=== PATIENT | male | born 1940 | race Caucasian/White ===

== ENCOUNTER 2017-01-29 09:10 | Day surgery (SDC) | payer OTHER, MEDICARE ==
--- NOTE | 2017-01-28 07:47 | HP ---
DATE OF SURGERY: 01/29/2017 ADMISSION DIAGNOSIS: Right inguinal hernia. ANTICIPATED PROCEDURE: Repair with mesh. HISTORY OF PRESENT ILLNESS: The patient has symptomatic right inguinal hernia presents for repair. PAST MEDICAL HISTORY: ALLERGIES: NONE. MEDICATIONS: None. PAST SURGICAL HISTORY: None. SOCIAL HISTORY: Negative. FAMILY HISTORY: Negative. REVIEW OF SYSTEMS: Negative. PHYSICAL EXAMINATION: VITAL SIGNS: Normal. CHEST: Clear. COR: Regular. ABDOMEN: Right inguinal hernia. IMPRESSION: Right inguinal hernia. PLAN: Repair with mesh.
[~2017-01-29 09:10] MED LIST: CEFAZOLIN 2 GM-D5W BAG** 50 ML IV ONE; DIPRIVAN 200 MG/20 ML IV ONE; Decadron 4 MG INJ IV ONE; EPINEPHRINE 1:1000 1 ML AMP IJ ONE; KEFZOL 1 GM ONE; LIDOCAINE HCL 2% 100 MG/5 ML IJ ONE; Lactated Ringers 1,000 ML IV ONE; Naropin 0.5% 30 ML VIAL IJ ONE; Pepcid 20 MG VIAL IV ONE; Quelicin Fliptop 200 MG/10 ML IJ ONE; Sensorcaine 0.25% 10 ML ONE; Zofran 4 MG/2 ML VIAL IV ONE
[2017-01-29] MEDS ORDERED: CEFAZOLIN 2 GM-D5W BAG** 50 ML IV ONE (09:18)
[2017-01-29] MEDS ORDERED: Pepcid 20 MG VIAL IV ONE (09:18)
[2017-01-29] MEDS ORDERED: Lactated Ringers 1,000 ML IV ONE (09:18)
[2017-01-29] MEDS ORDERED: Lactated Ringers 1,000 ML IV SCH (09:30)
[2017-01-29 14:24] VITALS: O2SAT 96
[2017-01-29 15:57] VITALS: BP 159/56; PULSE 59
--- NOTE | 2017-01-31 14:11 | OP ---
SURGERY DATE/TIME: 01/29/2017 1210 PREOPERATIVE DIAGNOSIS: Right inguinal hernia. POSTOPERATIVE DIAGNOSIS: Right inguinal hernia. PROCEDURE: Right inguinal herniorrhaphy with mesh. SURGEON: Juvencio Wilson M.D. ANESTHESIA: General. COMPLICATIONS: None. CONDITION: Stable. INDICATION: The patient has a moderate sized symptomatic right. DESCRIPTION OF PROCEDURE: Taken to surgery. General anesthetic. Routine prep and drape. Curvilinear incision. 0.25% Marcaine infiltrated. External oblique opened, cord opened along the direction of its fibers. Indirect sac, 2 inches was taken, highly ligated two sutures #0 Prolene. There was some direct weakness. Floor was reinforced with 1x4 mesh secured in Jewel's ligament with suture #0 Prolene. Transitioning up to the Poupart's ligament and out at that level inferiorly. The cephalad leaf was secured to the conjoin tendon throughout. Internal ring was made one clamp tight. Hemostasis satisfactory. Cord, ilioinguinal nerve laid back in natural position. External oblique closed with 0 Vicryl. Cipriano fascia closed with 2-0 Vicryl. Skin closed with 4-0 Vicryl. Steri-Strips applied. Sterile dressing applied. The patient tolerated the procedure satisfactorily.
== END 2017-01-29 15:30 | disposition home or self-care (01) ==
LOC: SDC 09:10
PROVIDERS: ATTEND Surgery
PROC: 0YU50JZ Supplement Right Inguinal Region with Synthetic Substitute, Open Approach (ICD-10-PCS; principal; 2017-01-29)
DX: K40.90 Unilateral inguinal hernia, without obstruction or gangrene, not specified as recurrent (principal)
CPT/HCPCS: 00830; 36415; 64425; 88302; 99100; C1781; J0171; J0330; J0690; J1100; J2405; J2704; J2795

== ENCOUNTER 2025-08-14 03:51 | Inpatient (IN) | payer MEDICARE, OTHER ==
[2025-08-14] MEDS ORDERED: TYLENOL 325 MG ONE (04:23)
[2025-08-14] MEDS: TYLENOL 325 MG PO STA (04:23)
[2025-08-14 04:33] LABS: Hematocrit 44.7 % (40.1-51.0); Hemoglobin 15.3 g/dL (13.7-17.5); Mean Corpuscular Hemoglobin 30.8 pg (25.7-32.2); Mean Corpuscular Hgb Concent. 34.2 g/dL (32.3-36.5); Platelet Count 252 x10^3/uL (163-337); Red Blood Count 4.96 x10^6/uL (4.63-6.08); White Blood Count 13.6 x10^3/uL (4.23-9.07)
[2025-08-14 04:55] LABS: Calcium 8.9 mg/dL (8.4-10.2); Carbon Dioxide 21.0 mmol/L (22-30); Creatinine 1 0.84 mg/dL (0.66-1.25); EST GLOMERULAR FILTRATION RATE 87.1 ML/MIN; Glucose 226.0 mg/dL (74-106); Potassium 3.9 mmol/L (3.5-5.1); SGOT/AST 35.0 U/L (17-59); SGPT/ALT 25.0 U/L (0-50); Total Protein 8.1 g/dL (6.3-8.2)
[2025-08-14 05:03] LABS: Glucose, Urine >=1000 mg/dL (Negative); Protein,Urine Dip 30 (Negative); RBC 0-2 /HPF (0-5); WBC 21-50 /HPF (0-5)
[2025-08-14 05:09] LABS: INFLUENZA A NEGATIVE (NEGATIVE); INFLUENZA B NEGATIVE (NEGATIVE); RESPIRATORY SYNCTIAL VIRUS NEGATIVE (NEGATIVE); SARS-CoV-2 Xpert Express NEGATIVE (NEGATIVE)
[2025-08-14] MEDS ORDERED: ROCEPHIN 1 GM / 100 ML NaCl 1 GM/100 ML IVPB IV ONE (06:07)
[2025-08-14] MEDS: ROCEPHIN 1 GM / 100 ML NaCl 1 GM/100 ML IVPB IV STA (06:09)
--- NOTE | 2025-08-14 06:20 | XRAY ---
CLINICAL HISTORY: fever, tachycardia, weakness COMPARISON: None. TECHNIQUE: Multiple axial images were obtained from the skull base to the vertex without contrast. The CT scan was performed according to ALARA (as low as reasonably achievable) principles. FINDINGS: There is cerebral atrophy. No evidence of a space-occupying lesion, hemorrhage, edema, mass effect, midline shift, extra-axial collection, or hydrocephalus is noted. The basal cisterns are symmetric and normal in size and configuration. There are scattered periventricular hypodensities, as can be seen with chronic microvascular ischemic changes. The howard-white matter differentiation is preserved. The visualized paranasal sinuses and mastoid air cells are well aerated. The orbital contents are within normal limits. The bony structures are intact. IMPRESSION: 1. No evidence of acute intracranial abnormality is demonstrated. 2. Chronic microvascular ischemic changes. 3. Cerebral atrophy. Electronically Signed by: Bryn Downs MD. (08/14/2025 06:19:19 EDT)
--- NOTE | 2025-08-14 06:37 | XRAY ---
CLINICAL HISTORY: abd discomfort, fever COMPARISON: None. TECHNIQUE: Contiguous axial images were obtained from the level of the diaphragm to the pubic symphysis with intravenous contrast. Coronal and sagittal reconstructions were likewise performed and indicated to increase the sensitivity for detecting clinically relevant pathology. If IV contrast material had not been administered, the likelihood of detecting abnormalities relevant to the patient's condition would have been substantially decreased. The CT scan was performed according to ALARA (as low as reasonably achievable). FINDINGS: The visualized lung bases are clear. Sliding hiatal hernia is noted. The liver is normal in size and demonstrates reduced attenuation. No focal liver lesions are seen. There is no intra- or extrahepatic biliary ductal dilatation. The hepatic vasculature is patent. The gallbladder is distended and shows a soft calculus measuring 24 mm with a thickened, edematous gallbladder wall (gallbladder wall thickness measures 5-6 mm) and mild pericholecystic fluid collection, findings suggestive of cholecystitis. The spleen and adrenal glands are unremarkable. Diffuse fatty infiltration of the pancreas is present. A cyst measuring 13 x 13 mm is noted in the tail of the pancreas, which appears benign. The kidneys are normal in size and attenuation. There is no hydronephrosis or perinephric fat stranding. No renal calculi or renal masses are identified. A 6 cm cyst is noted in the left kidney. A tiny, non-obstructing left renal calculus measuring about 3 mm is seen. The ureters are normal in caliber, and no ureteral calculi are seen. The bladder is normal in contour. The pelvic viscera are unremarkable. No focal or diffuse bowel wall thickening or evidence of bowel obstruction is identified. No imaging evidence of appendicitis is seen. The abdominal and pelvic vasculature is patent. No adenopathy or fluid collections are seen. No aggressive-appearing osseous lesions are identified. Multiple small uncomplicated sigmoid colonic diverticulosis. Fat-containing left-sided inguinal hernia. IMPRESSION: Acute calculus cholecystitis. Diffuse fatty infiltration of the pancreas. 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 Multiple small uncomplicated sigmoid colonic diverticulosis. Small non-obstructing left renal calculus. Electronically Signed by: Bryn Downs MD. (08/14/2025 06:35:34 EDT)
[2025-08-14] MEDS ORDERED: PIPERACILLIN/TAZOBACTAM IV ONE (06:52)
--- NOTE | 2025-08-14 06:57 | ERPHSYRPT ---
- History of Present Illness Source: patient, family Patient Subjective Stated Complaint: c/o fever Triage Nursing Assessment: patient brought to ED by with c/o fever of 100/5 upon arrival orally. patient states that he woke up with sweats and chills at home. patient denies N/V/D, denies pain at this time but had some abdominal pain yesterday. 92% on RA, tachycardic, brought in by wheelchair, states he feels dehydrated, patient doesn't appear to be in any distress at this time. Hx Tetanus, Diphtheria Vaccination/Date Given: No Hx Influenza Vaccination/Date Given: No Hx Pneumococcal Vaccination/Date Given: Yes <CHUCK GALEANA - Last Filed: 08/14/25 06:51> <AALIYAH BUSH - Last Filed: 08/14/25 08:01> - History of Present Illness Physician History: HISTORY OF PRESENT ILLNESS 84-year-old male with a history of urethral stricture and hypertension presents after waking this morning with fever to 100.5 F, sweats, and chills, reporting abdominal pain that began yesterday and persists today. He feels dehydrated and weak but denies nausea, vomiting, diarrhea, chest pain, shortness of breath, and any current urinary symptoms. He speculates that a kidney stone may have precipitated his symptoms. Pertinent negatives include absence of urinary complaints, chest pain, shortness of breath, nausea, vomiting, and diarrhea. HEALTHCARE PROVIDERS - [facility] (pending callback for anticipated transfer for surgical consultation, GI consultation) PAST MEDICAL HISTORY - History of urethral stricture - History of hypertension (CHUCK GALEANA) Allergies/Adverse Reactions: No Known Drug Allergies Allergy (Verified 08/14/25 04:01) Home Medications: lisinopriL [Lisinopril] 40 mg PO DAILY 01/20/17 [History] Amlodipine Besylate [Norvasc] 2.5 mg PO DAILY 08/14/25 [History] Metformin HCl 500 mg [Glucophage 500 MG] 500 mg PO DAILY 08/14/25 [History] hydroCHLOROthiazide [Hydrochlorothiazide] 12.5 mg PO DAILY 08/14/25 [History] Travel Risk - International Travel Have you traveled outside of the country in past 3 weeks: No - Emerging Infectious Disease Are you exhibiting symptoms associated with any current EIDs: Yes Symptoms: Fever <CHUCK GALEANA - Last Filed: 08/14/25 06:51> - Past Medical History Pertinent Past Medical History: Yes Neurological History: No Pertinent History ENT History: No Pertinent History Cardiac History: Hypertension Respiratory History: No Pertinent History Endocrine Medical History: No Pertinent History Musculoskeletal History: No Pertinent History GI Medical History: No Pertinent History History: Other Psycho-Social History: No Pertinent History Male Reproductive Disorders: No Pertinent History Other Medical History: urethral stricture, dialates every thursday with 18 guage catheter. - Past Surgical History Past Surgical History: Yes Neuro Surgical History: No Pertinent History Cardiac: No Pertinent History Respiratory: No Pertinent History Genitourinary: Other Musculoskeletal: No Pertinent History Male Surgical History: No Pertinent History Other Surgical History: kidney stone - Social History Smoking Status: Never smoker Exposure to second hand smoke: No Drug Use: none - Social Determinants of Health Will the patient participate in the screening: Yes Do you worry about a steady place to live?: No Do you have any problems with any of the following?: No known problems In the past 12 months,have you had to go without utilities?: No Transportation Issues: No Has anyone in your support network made you feel unsafe?: No Have you or anyone in your house had to go w/o enough food: No <CHUCK GALEANA - Last Filed: 08/14/25 06:51> - Physical Exam SpO2: 93 <CHUCK GALEANA - Last Filed: 08/14/25 06:51> - Nursing Vital Signs Nursing Vital Signs: Initial Vital Signs Temperature 100.5 F 08/14/25 03:56 Pain Scale Pain Intensity 4 - Physical Exam Comments: 08/14/25 07:00 PHYSICAL EXAM Vitals: Reviewed in chart. General: Alert and oriented; no acute distress. HEENT: Normocephalic. Respiratory: Respirations are non-labored; symmetrical chest wall expansion. Cardiovascular: 2+ radial pulse; tachycardic rate; no peripheral edema. GI: Mild abdominal discomfort; no rebound or guarding; no CVA tenderness. Integumentary: Warm. Musculoskeletal: Moving all extremities. Neurologic: Alert; normal speech. GCS 15. MOving all extremities. No focal deficits. Psychiatric: Appropriate. (CHUCK GALEANA) Ordered Tests: Active Orders 24 hr Category Date Time Status Vinyl Cutter STAT Care 08/14/25 04:15 Active EKG-ER Only STAT Care 08/14/25 04:13 Active IV Insertion STAT Care 08/14/25 04:13 Active Pulse Oximetry (ED) STAT Care 08/14/25 04:13 Active Re-Check Vital Signs STAT Care 08/14/25 04:13 Active ABDOMEN AND PELVIS W CONTRAST [CT] Stat Exams 08/14/25 04:14 Completed CHEST 1 VIEW (PORTABLE) Stat Exams 08/14/25 04:14 Taken HEAD WITHOUT CONTRAST [CT] Stat Exams 08/14/25 04:14 Completed BLOOD CULTURE Stat Lab 08/14/25 04:30 Received CBC W DIFF Stat Lab 08/14/25 04:30 Completed CMP Stat Lab 08/14/25 04:30 Completed CULTURE,URINE Stat Lab 08/14/25 04:48 Received Lactic Acid Stat Lab 08/14/25 04:44 Completed Lactic Acid Stat Lab 08/14/25 06:54 Completed Manual Differential NC Stat Lab 08/14/25 04:30 Completed TROPONIN Stat Lab 08/14/25 04:30 Completed UA W/RFX UR CULTURE Stat Lab 08/14/25 04:48 Completed Medication Summary Discontinued Medications Generic Name Dose Route Start Last Admin Trade Name Freq PRN Reason Stop Dose Admin Acetaminophen 975 mg 08/14/25 04:13 08/14/25 04:23 Acetaminophen 325 Mg Tablet PO 08/14/25 04:14 975 mg STAT STA Administration Acetaminophen Confirm 08/14/25 04:23 Acetaminophen 325 Mg Tablet Administered 08/14/25 04:24 Dose 975 mg .ROUTE .STK-MED ONE Sodium Chloride 1,000 mls @ 999 mls/hr 08/14/25 04:13 08/14/25 05:23 Sodium Chloride 0.9% 1000 Ml IV 08/14/25 05:13 Infused .Q1H1M STA Infusion Sodium Chloride Confirm 08/14/25 04:23 Sodium Chloride 0.9% 1000 Ml Administered 08/14/25 04:24 Dose 1,000 mls @ ud .ROUTE .STK-MED ONE Ceftriaxone Sodium 1 gm in 100 mls @ 200 mls/hr 08/14/25 06:05 08/14/25 06:39 Rocephin 1 Gm / 100 Ml Nacl IV 08/14/25 06:34 Infused STAT STA Infusion Ceftriaxone Sodium Confirm 08/14/25 06:07 Rocephin 1 Gm / 100 Ml Nacl Administered 08/14/25 06:08 Dose 1 gm in 100 mls @ ud IV .STK-MED ONE Piperacillin Sod/Tazobactam 100 mls @ 200 mls/hr 08/14/25 06:50 08/14/25 07:33 Sod 3.375 gm/ Sodium Chloride IV 08/14/25 07:19 Infused STAT STA Infusion Sodium Chloride Confirm 08/14/25 06:52 Sodium Chloride 0.9% Administered 08/14/25 06:53 Dose 100 mls @ ud .ROUTE .STK-MED ONE Piperacillin Sod/Tazobactam Sod Confirm 08/14/25 06:52 Piperacillin/Tazobactam Sodium 3.375 Gm Vial Administered 08/14/25 06:53 Dose 3.375 gm IV .STK-MED ONE Lab/Rad Data: Laboratory Result Diagrams 08/14/25 04:30 08/14/25 04:30 Laboratory Results 08/14/25 08/14/25 08/14/25 Range/Units 06:54 04:48 04:44 WBC (4.23-9.07) x10^3/uL RBC (4.63-6.08) x10^6/uL Hgb (13.7-17.5) g/dL Hct (40.1-51.0) % MCV (79.0-92.2) fL MCH (25.7-32.2) pg MCHC (32.3-36.5) g/dL RDW (11.6-14.4) % Plt Count (163-337) x10^3/uL MPV (9.4-12.4) fL Segmented Neutrophils (34.0-67.9) % Band Neutrophils (0.0-2.0) % Lymphocytes (Manual) (21.8-53.1) % Platelet Estimate (NORMAL) RBC Morphology Sodium (135-145) mmol/L Potassium (3.5-5.1) mmol/L Chloride (98-107) mmol/L Carbon Dioxide (22-30) mmol/L Anion Gap (5-15) MEQ/L BUN (9-20) mg/dL Creatinine (0.66-1.25) mg/dL Estimated GFR ML/MIN Glucose (74-106) mg/dL Lactic Acid 1.2 3.0 H (0.4-2.0) Calcium (8.4-10.2) mg/dL Total Bilirubin (0.2-1.3) mg/dL AST (17-59) U/L ALT (0-50) U/L Alkaline Phosphatase (38-126) U/L Troponin I (0.000-0.033) ng/mL Serum Total Protein (6.3-8.2) g/dL Albumin (3.5-5.0) g/dL Urine Color Yellow (Yellow) Urine Appearance Clear (Clear) Urine pH 5.5 (4.6-8.0) Ur Specific [place] 1.015 (1.005-1.030) Urine Protein 30 (Negative) Urine Glucose (UA) >=1000 A (Negative) mg/dL Urine Ketones Trace A (Negative) Urine Blood Negative (Negative) Urine Nitrite Negative (Negative) Urine Bilirubin Negative (Negative) Urine Urobilinogen 1.0 A (0.2) mg/dL Ur Leukocyte Esterase Moderate A (Negative) U Hyaline Cast (Auto) 6-10 A (0-2) /LPF Urine Microscopic RBC 0-2 (0-5) /HPF Urine Microscopic WBC 21-50 A (0-5) /HPF Ur Epithelial Cells Rare (None Seen) /HPF Urine Bacteria None Seen (None Seen) /HPF Urine Culture Reflexed YES (NO) Influenza Type A Ag (NEGATIVE) Influenza Type B Ag (NEGATIVE) RSV (PCR) (NEGATIVE) SARS-CoV-2 (PCR) (NEGATIVE) 08/14/25 08/14/25 08/14/25 Range/Units 04:30 04:30 04:30 WBC (4.23-9.07) x10^3/uL RBC (4.63-6.08) x10^6/uL Hgb (13.7-17.5) g/dL Hct (40.1-51.0) % MCV (79.0-92.2) fL MCH (25.7-32.2) pg MCHC (32.3-36.5) g/dL RDW (11.6-14.4) % Plt Count (163-337) x10^3/uL MPV (9.4-12.4) fL Segmented Neutrophils (34.0-67.9) % Band Neutrophils (0.0-2.0) % Lymphocytes (Manual) (21.8-53.1) % Platelet Estimate (NORMAL) RBC Morphology Sodium 132 L (135-145) mmol/L Potassium 3.9 (3.5-5.1) mmol/L Chloride 100 (98-107) mmol/L Carbon Dioxide 21 L (22-30) mmol/L Anion Gap 14.8 (5-15) MEQ/L BUN 11 (9-20) mg/dL Creatinine 0.84 (0.66-1.25) mg/dL Estimated GFR 87.1 ML/MIN Glucose 226 H (74-106) mg/dL Lactic Acid (0.4-2.0) Calcium 8.9 (8.4-10.2) mg/dL Total Bilirubin 1.50 H (0.2-1.3) mg/dL AST 35 (17-59) U/L ALT 25 (0-50) U/L Alkaline Phosphatase 110 (38-126) U/L Troponin I 0.033 (0.000-0.033) ng/mL Serum Total Protein 8.1 (6.3-8.2) g/dL Albumin 4.3 (3.5-5.0) g/dL Urine Color (Yellow) Urine Appearance (Clear) Urine pH (4.6-8.0) Ur Specific [place] (1.005-1.030) Urine Protein (Negative) Urine Glucose (UA) (Negative) mg/dL Urine Ketones (Negative) Urine Blood (Negative) Urine Nitrite (Negative) Urine Bilirubin (Negative) Urine Urobilinogen (0.2) mg/dL Ur Leukocyte Esterase (Negative) U Hyaline Cast (Auto) (0-2) /LPF Urine Microscopic RBC (0-5) /HPF Urine Microscopic WBC (0-5) /HPF Ur Epithelial Cells (None Seen) /HPF Urine Bacteria (None Seen) /HPF Urine Culture Reflexed (NO) Influenza Type A Ag NEGATIVE (NEGATIVE) Influenza Type B Ag NEGATIVE (NEGATIVE) RSV (PCR) NEGATIVE (NEGATIVE) SARS-CoV-2 (PCR) NEGATIVE (NEGATIVE) 08/14/25 Range/Units 04:30 WBC 13.6 H (4.23-9.07) x10^3/uL RBC 4.96 (4.63-6.08) x10^6/uL Hgb 15.3 (13.7-17.5) g/dL Hct 44.7 (40.1-51.0) % MCV 90.1 (79.0-92.2) fL MCH 30.8 (25.7-32.2) pg MCHC 34.2 (32.3-36.5) g/dL RDW 12.7 (11.6-14.4) % Plt Count 252 (163-337) x10^3/uL MPV 10.6 (9.4-12.4) fL Segmented Neutrophils 92 H (34.0-67.9) % Band Neutrophils 3 H (0.0-2.0) % Lymphocytes (Manual) 5 L (21.8-53.1) % Platelet Estimate NORMAL (NORMAL) RBC Morphology NORMAL Sodium (135-145) mmol/L Potassium (3.5-5.1) mmol/L Chloride (98-107) mmol/L Carbon Dioxide (22-30) mmol/L Anion Gap (5-15) MEQ/L BUN (9-20) mg/dL Creatinine (0.66-1.25) mg/dL Estimated GFR ML/MIN Glucose (74-106) mg/dL Lactic Acid (0.4-2.0) Calcium (8.4-10.2) mg/dL Total Bilirubin (0.2-1.3) mg/dL AST (17-59) U/L ALT (0-50) U/L Alkaline Phosphatase (38-126) U/L Troponin I (0.000-0.033) ng/mL Serum Total Protein (6.3-8.2) g/dL Albumin (3.5-5.0) g/dL Urine Color (Yellow) Urine Appearance (Clear) Urine pH (4.6-8.0) Ur Specific [place] (1.005-1.030) Urine Protein (Negative) Urine Glucose (UA) (Negative) mg/dL Urine Ketones (Negative) Urine Blood (Negative) Urine Nitrite (Negative) Urine Bilirubin (Negative) Urine Urobilinogen (0.2) mg/dL Ur Leukocyte Esterase (Negative) U Hyaline Cast (Auto) (0-2) /LPF Urine Microscopic RBC (0-5) /HPF Urine Microscopic WBC (0-5) /HPF Ur Epithelial Cells (None Seen) /HPF Urine Bacteria (None Seen) /HPF Urine Culture Reflexed (NO) Influenza Type A Ag (NEGATIVE) Influenza Type B Ag (NEGATIVE) RSV (PCR) (NEGATIVE) SARS-CoV-2 (PCR) (NEGATIVE) <CHUCK GALEANA - Last Filed: 08/14/25 06:51> - Progress Progress: improved, re-examined Discussed with DrLatrice: Kee Shah Counseled pt/family regarding: lab results, diagnosis, need for follow-up, rad results <AALIYAH BUSH - Last Filed: 08/14/25 08:01> - Progress Progress Note: 08/14/25 07:00 SUMMARY 84-year-old male presented with fever and abdominal pain. Exam showed mild abdominal discomfort and tachycardia. Labs revealed leukocytosis, elevated lactic acid, borderline troponin, borderline hyponatremia, elevated total bilirubin, and urine with moderate leukocyte esterase. EKG demonstrated sinus tachycardia without STEMI. CT abdomen/pelvis showed acute calculous cholecystitis, diffuse fatty infiltration of the pancreas, and a hypodense pancreatic tail lesion. Patient was informed of findings. Case signed out to Dr. Bush pending transfer to [facility] for surgical and GI consultation. Anticipated disposition is transfer for further management. EKG A 12-lead EKG was performed at 0418, and I independently interpret it as demonstrating sinus tachycardia, no significant ST segment elevation or depression. No prolongation of the intervals. Additional findings: mild demand induced changes, overall similar appearance to previous EKG. IMAGING I reviewed the report of the CT abdomen pelvis as demonstrating acute calculous cholecystitis, diffuse fatty infiltration of the pancreas, and a hypodense lesion noted in the tail of the pancreas. Incidental findings were also noted. I reviewed the report of the CT head as demonstrating no acute abnormality. LABS The following laboratory tests were performed and independently reviewed with results being unremarkable: COVID, influenza, and RSV swabs. Notable laboratory findings included lactic acid elevated at 3, borderline troponin level, urine notable for moderate leukocyte esterase, leukocytosis, borderline hyponatremia, and total bilirubin elevated at 1.5. MEDICATION/FLUID ADMINISTRATION - Patient was administered IV ceftriaxone. - Patient was administered oral acetaminophen. - Patient was administered IV piperacillin-tazobactam. - Patient was given 1L IV fluids. Additional fluids limited 2/2 age. PATIENT DISCUSSION I discussed available results with the patient, including the incidental findings and findings on CT imaging. MEDICAL DECISION MAKING This 84-year-old male presented with fever, abdominal pain, and a history of urethral stricture and hypertension. On examination, he was tachycardic with mild abdominal discomfort but without rebound, guarding, or CVA tenderness. Laboratory evaluation revealed elevated lactic acid, leukocytosis, borderline troponin, borderline hyponatremia, elevated total bilirubin, and urine with moderate leukocyte esterase. Imaging demonstrated acute calculous cholecystitis, diffuse fatty infiltration of the pancreas, and a hypodense lesion in the pancreatic tail. EKG showed sinus tachycardia without STEMI or interval changes. Given the diagnosis of acute calculous cholecystitis with systemic inflammatory response and abnormal laboratory findings, broad-spectrum antibiotics (IV ceftriaxone and IV Zosyn) and supportive care with IV fluids and oral Tylenol were initiated. The patient was informed of both the acute and incidental findings on CT imaging. Dynamic reassessment included monitoring for clinical improvement and review of repeat EKG, which remained stable. Due to the need for surgical and GI consultation, the patient was signed out to Dr. Bush pending transfer to [facility] and awaiting callback. The anticipated disposition is transfer for further management, with escalation of care if clinical deterioration or worsening laboratory parameters are observed. DISPOSITION Pending at time of sign out Disposition decision pending transfer acceptance and specialist consultation. Condition: Stable (CHUCK GALEANA) 08/14/25 07:[address] Jasso, general surgeon on-call. We will not perform an ultrasound. He wants anesthesia to see the patient. Anesthesia did see the patient here in the emergency department and his cleared him for cholecystectomy. The MRCP could not be scheduled till 1 PM today. Therefore, the MRCP will be scheduled for tomorrow or the next day postoperatively. I have discussed this with Dr. Jasso. I have placed a call to the telehospitalist for admission. 08/14/25 07:57 I spoke with telehospitalist, Dr. Nicholson, regarding admitting this patient into the hospital. I reviewed the patient history, presenting complaint, workup results. In addition I told her that the anesthesia has seen the patient and has cleared him for surgery. I also told her that I had spoken to general surgeon Dr. Jasso. It is my understanding the patient will be having surgery sometime today. She accepts the patient for admission (AALIYAH BUSH) Medical Desision Making - Independent Historian Additional History obtained from: Family - Discussion of managment Care discussed with:: hospitalist Reviewed:: Test results, Need for additional workup - Risk of complications The pt has a high risk of morbidity or mortality based on: Decision regarding hospitilization or escalation of hosp level of care <AALIYAH BUSH - Last Filed: 08/14/25 08:01> - Departure Departure Disposition: Transfer Critical Care Time: No <CHUCK GALEANA - Last Filed: 08/14/25 06:51> - Departure Departure Disposition: In-patient Admission Critical Care Time: No <AALIYAH BUSH - Last Filed: 08/14/25 08:01> - Departure Clinical Impression: Acute cholecystitis, Pancreatic lesion, SIRS (systemic inflammatory response syndrome) Condition: Fair Referrals: JIMBO OHARA MD [Primary Care Provider, [facility]] - Follow up/PCP as directed
[2025-08-14 07:31] LABS: BAND 3 % (0.0-2.0); Total Cells Counted 100
--- NOTE | 2025-08-14 08:39 | XRAY ---
Indication: Fever. Tachycardia. Comparison: None Portable chest inflated and clear. Heart and mediastinal structures within normal limits. Bony thorax intact with osteopenia and mild degenerative changes. Impression: Nonacute chest with chronic bony findings.
--- NOTE | 2025-08-14 09:43 | PCM.HP ---
<ZAFAR ALVAREZ - Last Filed: 08/14/25 09:38> History of Present Illness - Chief Complaint Chief Complaint: Acute Cholecystitis, Pancreatic Lesion, SIRS Date: 08/14/25 History of Present Illness: is a 84 year old male with a past medical history of borderline diabetes, hypertension, and urethral stricture who presented to the ED on 08/14/25 with one day of fever (Tmax 100.5F), sweats, chills, abdominal pain, and dry heaves. He reported a history of kidney stones and initially thought he was experiencing another episode. The abdominal pain was localized to the right upper quadrant, cramping in nature, radiating to the right shoulder, intermittent, and currently rated 0/10 on the numerical pain scale. On arrival, he was febrile (100.5F) and tachycardic (HR up to 119). 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 Chest X-ray showed no acute findings. Head CT showed no acute intracranial abnormality but did reveal chronic microvascular ischemic changes and cerebral atrophy. Laboratory studies were significant for leukocytosis (WBC 13), mild hyponatremia (Na 132), lactic acid elevated at 3.0 (improved to 1.2 after 1 L IV fluid resuscitation), and total bilirubin 1.50. Urinalysis was suspicious for UTI with moderate leukocyte esterase and microscopic WBCs. In the ED, he received a 1 L IV fluid bolus and broad-spectrum antibiotics (zosyn/ceftriaxone). Surgery was consulted and is planning operative management this afternoon. MRCP is scheduled for tomorrow to further evaluate the pancreatic lesion. - Review of Systems Constitutional: Fever, Chills, Weakness Eyes: No Symptoms Ears, Nose, & Throat: No Symptoms Respiratory: No Symptoms Cardiac: No Symptoms Abdominal/Gastrointestinal: Abdominal Pain, Nausea Genitourinary Symptoms: No Symptoms Musculoskeletal: No Symptoms Skin: No Symptoms Neurological: No Symptoms Psychological: No Symptoms Endocrine: No Symptoms Hematologic/Lymphatic: No Symptoms Immunological/Allergic: No Symptoms Medications & Allergies Home Medications: Home Medication List lisinopriL [Lisinopril] 40 mg PO DAILY 01/20/17 [History Confirmed 08/14/25] Acetaminophen 325 mg [Tylenol 325 mg] 650 mg PO Q4H PRN PRN tablet 08/14/25 [Rx] Amlodipine Besylate [Norvasc] 2.5 mg PO DAILY 08/14/25 [History Confirmed 08/14/25] Ondansetron HCl 4 mg/2 ml [Zofran 4 MG/2 ML VIAL] 4 mg IV Q6H PRN PRN 08/14/25 [Rx] Piperacillin/Tazobactam 3.375G [Piperacillin/Tazobactam] 3.375 gm IV Q6HT 08/14/25 [Rx] Allergies/Adverse Reactions: Allergies Allergy/AdvReac Type Severity Reaction Status Date / Time No Known Drug Allergies Allergy Verified 08/14/25 08:19 - Past Medical History Past Medical History: Yes Neurological History: No Pertinent History ENT History: No Pertinent History Cardiac History: Hypertension Respiratory History: No Pertinent History Endocrine Medical History: Other Musculoskelatal History: No Pertinent History GI Medical History: No Pertinent History History: Other Pyscho-Social History: No Pertinent History Male Reproductive Disorders: No Pertinent History Comment: urethral stricture (states fixed now from surgery; Dr. Corbett), prediabetic - Past Surgical History Past Surgical History: Yes Neuro Surgical History: No Pertinent History Cardiac History: No Pertinent History Respiratory Surgery: No Pertinent History GI Surgical History: No Pertinent History Genitourinary Surgical Hx: Other Musculskeletal Surgical Hx: No Pertinent History Male Surgical History: No Pertinent History Other Surgical History: kidney stone, urethra stricture Significant Family History: hypertension - Social History Smoking Status: Former smoker Exposure to second hand smoke: No Alcohol: None Drug Use: none - Social Determinants of Health Will the patient participate in the screening: Yes Do you worry about a steady place to live?: No Do you have any problems with any of the following?: No known problems In the past 12 months,have you had to go without utilities?: No Have you or anyone in your house had to go without enough: No Transportation Issues: No Has anyone in your support network made you feel unsafe?: No Does the patient want assistance with any of the above?: No - Physical Exam Vital Signs: Vital Signs - 24 hr Temp Pulse Resp BP BP Pulse Ox 08/14/25 08:25 99.3 F 90 17 131/61 92 L 08/14/25 08:18 99.3 F 90 17 131/61 92 L 08/14/25 08:15 99.2 F 88 16 111/78 98 08/14/25 07:39 149/75 93 L 08/14/25 07:36 98 H 22 102/68 93 L 08/14/25 07:31 97 H 24 92 L 08/14/25 07:02 93 L 08/14/25 07:00 96 H 18 118/67 93 L 08/14/25 06:30 94 H 20 108/63 94 L 08/14/25 06:00 99.3 F 91 H 24 115/66 93 L 08/14/25 05:37 91 H 22 123/70 93 L 08/14/25 05:00 96 H 17 105/63 93 L 08/14/25 04:34 108 H 25 H 149/75 96 08/14/25 04:30 95 H 24 149/75 94 L 08/14/25 04:21 93 L 08/14/25 04:00 119 H 18 139/74 93 L 08/14/25 03:56 100.5 F General Appearance: no apparent distress Neurologic Exam: alert, oriented x 3, cooperative Eye Exam: PERRL/EOMI Ears, Nose, Throat Exam: normal ENT inspection Neck Exam: normal inspection Respiratory Exam: normal breath sounds, lungs clear Cardiovascular Exam: regular rate/rhythm, normal heart sounds Gastrointestinal/Abdomen Exam: tenderness (TTP RU/RLQ) Rectal Exam: deferred Back Exam: normal inspection Extremity Exam: normal inspection Skin Exam: normal color Results - Labs Lab/Micro Results: Lab Results-Last 24 Hours 08/14/25 08/14/25 08/14/25 Range/Units 04:30 04:30 04:30 WBC 13.6 H (4.23-9.07) x10^3/uL RBC 4.96 (4.63-6.08) x10^6/uL Hgb 15.3 (13.7-17.5) g/dL Hct 44.7 (40.1-51.0) % MCV 90.1 (79.0-92.2) fL MCH 30.8 (25.7-32.2) pg MCHC 34.2 (32.3-36.5) g/dL RDW 12.7 (11.6-14.4) % Plt Count 252 (163-337) x10^3/uL MPV 10.6 (9.4-12.4) fL Segmented Neutrophils 92 H (34.0-67.9) % Band Neutrophils 3 H (0.0-2.0) % Lymphocytes (Manual) 5 L (21.8-53.1) % Platelet Estimate NORMAL (NORMAL) RBC Morphology NORMAL Sodium 132 L (135-145) mmol/L Potassium 3.9 (3.5-5.1) mmol/L Chloride 100 (98-107) mmol/L Carbon Dioxide 21 L (22-30) mmol/L Anion Gap 14.8 (5-15) MEQ/L BUN 11 (9-20) mg/dL Creatinine 0.84 (0.66-1.25) mg/dL Estimated GFR 87.1 ML/MIN Glucose 226 H (74-106) mg/dL Lactic Acid (0.4-2.0) Calcium 8.9 (8.4-10.2) mg/dL Total Bilirubin 1.50 H (0.2-1.3) mg/dL AST 35 (17-59) U/L ALT 25 (0-50) U/L Alkaline Phosphatase 110 (38-126) U/L Troponin I (0.000-0.033) ng/mL Serum Total Protein 8.1 (6.3-8.2) g/dL Albumin 4.3 (3.5-5.0) g/dL Urine Color (Yellow) Urine Appearance (Clear) Urine pH (4.6-8.0) Ur Specific [place] (1.005-1.030) Urine Protein (Negative) Urine Glucose (UA) (Negative) mg/dL Urine Ketones (Negative) Urine Blood (Negative) Urine Nitrite (Negative) Urine Bilirubin (Negative) Urine Urobilinogen (0.2) mg/dL Ur Leukocyte Esterase (Negative) U Hyaline Cast (Auto) (0-2) /LPF Urine Microscopic RBC (0-5) /HPF Urine Microscopic WBC (0-5) /HPF Ur Epithelial Cells (None Seen) /HPF Urine Bacteria (None Seen) /HPF Urine Culture Reflexed (NO) Influenza Type A Ag NEGATIVE (NEGATIVE) Influenza Type B Ag NEGATIVE (NEGATIVE) RSV (PCR) NEGATIVE (NEGATIVE) SARS-CoV-2 (PCR) NEGATIVE (NEGATIVE) 08/14/25 08/14/25 08/14/25 Range/Units 04:30 04:44 04:48 WBC (4.23-9.07) x10^3/uL RBC (4.63-6.08) x10^6/uL Hgb (13.7-17.5) g/dL Hct (40.1-51.0) % MCV (79.0-92.2) fL MCH (25.7-32.2) pg MCHC (32.3-36.5) g/dL RDW (11.6-14.4) % Plt Count (163-337) x10^3/uL MPV (9.4-12.4) fL Segmented Neutrophils (34.0-67.9) % Band Neutrophils (0.0-2.0) % Lymphocytes (Manual) (21.8-53.1) % Platelet Estimate (NORMAL) RBC Morphology Sodium (135-145) mmol/L Potassium (3.5-5.1) mmol/L Chloride (98-107) mmol/L Carbon Dioxide (22-30) mmol/L Anion Gap (5-15) MEQ/L BUN (9-20) mg/dL Creatinine (0.66-1.25) mg/dL Estimated GFR ML/MIN Glucose (74-106) mg/dL Lactic Acid 3.0 H (0.4-2.0) Calcium (8.4-10.2) mg/dL Total Bilirubin (0.2-1.3) mg/dL AST (17-59) U/L ALT (0-50) U/L Alkaline Phosphatase (38-126) U/L Troponin I 0.033 (0.000-0.033) ng/mL Serum Total Protein (6.3-8.2) g/dL Albumin (3.5-5.0) g/dL Urine Color Yellow (Yellow) Urine Appearance Clear (Clear) Urine pH 5.5 (4.6-8.0) Ur Specific [place] 1.015 (1.005-1.030) Urine Protein 30 (Negative) Urine Glucose (UA) >=1000 A (Negative) mg/dL Urine Ketones Trace A (Negative) Urine Blood Negative (Negative) Urine Nitrite Negative (Negative) Urine Bilirubin Negative (Negative) Urine Urobilinogen 1.0 A (0.2) mg/dL Ur Leukocyte Esterase Moderate A (Negative) U Hyaline Cast (Auto) 6-10 A (0-2) /LPF Urine Microscopic RBC 0-2 (0-5) /HPF Urine Microscopic WBC 21-50 A (0-5) /HPF Ur Epithelial Cells Rare (None Seen) /HPF Urine Bacteria None Seen (None Seen) /HPF Urine Culture Reflexed YES (NO) Influenza Type A Ag (NEGATIVE) Influenza Type B Ag (NEGATIVE) RSV (PCR) (NEGATIVE) SARS-CoV-2 (PCR) (NEGATIVE) 08/14/25 Range/Units 06:54 WBC (4.23-9.07) x10^3/uL RBC (4.63-6.08) x10^6/uL Hgb (13.7-17.5) g/dL Hct (40.1-51.0) % MCV (79.0-92.2) fL MCH (25.7-32.2) pg MCHC (32.3-36.5) g/dL RDW (11.6-14.4) % Plt Count (163-337) x10^3/uL MPV (9.4-12.4) fL Segmented Neutrophils (34.0-67.9) % Band Neutrophils (0.0-2.0) % Lymphocytes (Manual) (21.8-53.1) % Platelet Estimate (NORMAL) RBC Morphology Sodium (135-145) mmol/L Potassium (3.5-5.1) mmol/L Chloride (98-107) mmol/L Carbon Dioxide (22-30) mmol/L Anion Gap (5-15) MEQ/L BUN (9-20) mg/dL Creatinine (0.66-1.25) mg/dL Estimated GFR ML/MIN Glucose (74-106) mg/dL Lactic Acid 1.2 (0.4-2.0) Calcium (8.4-10.2) mg/dL Total Bilirubin (0.2-1.3) mg/dL AST (17-59) U/L ALT (0-50) U/L Alkaline Phosphatase (38-126) U/L Troponin I (0.000-0.033) ng/mL Serum Total Protein (6.3-8.2) g/dL Albumin (3.5-5.0) g/dL Urine Color (Yellow) Urine Appearance (Clear) Urine pH (4.6-8.0) Ur Specific [place] (1.005-1.030) Urine Protein (Negative) Urine Glucose (UA) (Negative) mg/dL Urine Ketones (Negative) Urine Blood (Negative) Urine Nitrite (Negative) Urine Bilirubin (Negative) Urine Urobilinogen (0.2) mg/dL Ur Leukocyte Esterase (Negative) U Hyaline Cast (Auto) (0-2) /LPF Urine Microscopic RBC (0-5) /HPF Urine Microscopic WBC (0-5) /HPF Ur Epithelial Cells (None Seen) /HPF Urine Bacteria (None Seen) /HPF Urine Culture Reflexed (NO) Influenza Type A Ag (NEGATIVE) Influenza Type B Ag (NEGATIVE) RSV (PCR) (NEGATIVE) SARS-CoV-2 (PCR) (NEGATIVE) - Radiology Impressions Radiology Exams & Impressions: Radiology Procedures Category Date Time Status ABDOMEN AND PELVIS W CONTRAST [CT] Stat Exams 08/14/25 04:14 Completed CHEST 1 VIEW (PORTABLE) Stat Exams 08/14/25 04:14 Completed HEAD WITHOUT CONTRAST [CT] Stat Exams 08/14/25 04:14 Completed Assessment/Plan (1) Sepsis Status: Acute Assessment & Plan: -Secondary to cholecystitis/UTI -meets criteria with fever, tachycardia, wbc at 13.6 and known source -Imaging: CT confirmed acute calculus cholecystitis. -Labs: Tbili 1.50 (mild cholestatic pattern), leukocytosis 13. -Surgical: Proceed with laparoscopic cholecystectomy today per surgery consult -Continue broad-spectrum coverage Zosyn until source control achieved; tailor per intra-op cultures -Continue IVF -Lactic now WNL -Analgesia/antiemetics PRN. -Post-op monitoring: Watch for biliary injury, abscess, bile leak. -Blood and urine cultures pending (2) UTI (urinary tract infection) Status: Acute Assessment & Plan: -see sepsis above Code(s): N39.0 - URINARY TRACT INFECTION, SITE NOT SPECIFIED (3) Acute cholecystitis Status: Acute Assessment & Plan: -see sepsis above Code(s): K81.0 - ACUTE CHOLECYSTITIS (4) HTN (hypertension) Status: Acute Assessment & Plan: -Continue home antihypertensive regimen as tolerated post-op. Code(s): I10 - ESSENTIAL (PRIMARY) HYPERTENSION (5) Borderline diabetes Status: Acute Assessment & Plan: -Hold metformin -currently NPO -Accuchecks q4H- then achs after surgery with SSI -a1c Code(s): R73.03 - PREDIABETES (6) History of urethral stricture Status: Acute Assessment & Plan: -Stable, no acute obstruction noted. -Continue outpatient urology follow-up. -Monitor for urinary retention during admission. Code(s): Z87.448 - PERSONAL HISTORY OF OTHER DISEASES OF URINARY SYSTEM (7) Pancreatic lesion Status: Acute Assessment & Plan: -MRCP scheduled for tomorrow for characterization. -Outpatient GI follow-up for surveillance if confirmed benign. Code(s): K86.9 - DISEASE OF PANCREAS, UNSPECIFIED (8) Hyperbilirubinemia Status: Acute Assessment & Plan: -Likely secondary to biliary obstruction/inflammation. -Monitor liver enzymes and Tbili post-op. -GI evaluation if worsening or persistent post-cholecystectomy. Code(s): E80.6 - OTHER DISORDERS OF BILIRUBIN METABOLISM (9) Hyponatremia Status: Acute Assessment & Plan: -Likely multifactorial: sepsis-related, volume resuscitation. -Monitor BMP daily. -Correct underlying cause (infection/sepsis). -No immediate correction indicated (asymptomatic, Na >130) VTE: SCD PPI: protonix Dispo: 1-3 days Code status: Full code Plan of care time spent >45 mins Code(s): E87.1 - HYPO-OSMOLALITY AND HYPONATREMIA <KODAK HODGE - Last Filed: 08/15/25 16:14> History of Present Illness - Chief Complaint History of Present Illness: is a 84 year old male. Results - Labs Lab/Micro Results: Lab Results-Last 24 Hours 08/14/25 08/14/25 Range/Units 16:10 16:21 POC Glucometer 163 H (74 to 106) mg/dL Troponin I 0.082 H* (0.000-0.033) ng/mL Microbiology 08/14/25 04:48 Urine Culture - Final Urine, Void NO GROWTH 08/14/25 04:20 Blood Culture Gram Stain - Final Blood - Radiology Impressions Radiology Exams & Impressions: Radiology Procedures Category Date Time Status ABDOMEN AND PELVIS W CONTRAST [CT] Stat Exams 08/14/25 04:14 Completed CHEST 1 VIEW (PORTABLE) Stat Exams 08/14/25 04:14 Completed HEAD WITHOUT CONTRAST [CT] Stat Exams 08/14/25 04:14 Completed LILA Encounter - LILA Encounter Attestation LILA Encounter Attestation: "[email or web address] [email or web address] on 08/14/2025 andhavediscussed pertinent aspects of their care with Zafar Castrejon agree with the history, physical exam (any modifications based on my personal exam will be noted below), assessment, and plan as outlined in original note. Please see immediately below for my summary of findings and additional assessment and plan along with any meaningful corrections/explanations to the Subjective/Objective portions of the LILA note will be noted." My portion of the encounter took place via telemedicine. -Patient admitted with acute cholecystitis and plans for surgery however given positive troponin will need transfer to higher level of care for additional preop cardiac testing. Patient chest pain free at the time of my evaluation and his abdominal pain had resolved as well. Stable for transfer.
[2025-08-14] MEDS ORDERED: Zofran 4 MG/2 ML VIAL IV PRN (09:49)
[2025-08-14] MEDS ORDERED: HUMALOG SQ PRN (09:49)
[2025-08-14] MEDS: Zofran 4 MG/2 ML VIAL IV PRN (10:26)
[2025-08-14] MEDS: NORVASC 5 MG PO SCH (10:26)
[2025-08-14] MEDS: Zestril 20 MG PO SCH (10:26)
[2025-08-14] MEDS: hydroDIURIL 25 MG PO SCH (10:27)
[2025-08-14] MEDS: TYLENOL 325 MG PO PRN (10:28)
[2025-08-14 11:57] VITALS: O2SAT 91
--- NOTE | 2025-08-14 12:54 | PCM.DS ---
Discharge Summary Date of Admission: 08/14/25 08:15 Date of Discharge: 08/14/25 Admitting Physician: MAHENDRA ROBLEDO Consults: Consults on Case 08/14/25 11:30 Consult Cardiology ROUTINE Primary Care Provider: JIMBO OHARA YEISON Allergies Allergies No Known Drug Allergies Allergy (Verified 08/14/25 08:19) Hospital Summary - Hospital Course Hospital Course: Mr. Lui is an 84-year-old male with a history of borderline diabetes, hypertension, and urethral stricture who presented to the ED on 08/14/25 with one day of fever (Tmax 100.5F), sweats, chills, abdominal pain, and dry heaves. He has a prior history of nephrolithiasis and initially thought his symptoms reflected another episode. His abdominal pain was localized to the right upper quadrant, cramping in nature, radiating to the right shoulder, intermittent, and currently rated 0/10. On arrival, he was febrile (100.5F) and tachycardic (HR 119). 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 Chest X-ray showed no acute findings. Head CT demonstrated no acute intracranial abnormality but revealed chronic microvascular ischemic changes and cerebral atrophy. Laboratory evaluation revealed leukocytosis (WBC 13), mild hyponatremia (Na 132), lactic acid 3.0 (improved to 1.2 after IV fluids), and total bilirubin 1.50. Troponin was elevated at 0.093. Urinalysis suggested UTI with moderate leukocyte esterase and microscopic WBCs. In the ED, he was started on IV fluids, broad-spectrum antibiotics (Zosyn/ceftriaxone), and pain/nausea control. Surgery was consulted and planned for operative intervention; MRCP was scheduled for further characterization of the pancreatic lesion. However, given the elevated troponin, the patient is being transferred to [facility] for a higher level of care and further management per surgical recommendations I spent 35 minutes [id number] with the patient on the day of discharge performing discharge exam, discussing hospital stay and discharge instructions with patient and caregivers, preparation of discharge records, prescriptions & referral forms and addressing any questions/concerns the patient had as documented above. - Vitals & Intake/Output Vital Signs: Vital Signs Temperature 99.2 F 08/14/25 11:56 Pulse Rate 80 08/14/25 11:56 Respiratory Rate 18 08/14/25 11:56 Blood Pressure 115/56 08/14/25 11:56 O2 Sat by Pulse Oximetry 91 L 08/14/25 11:56 Intake & Output: Intake & Output 08/12/25 08/13/25 08/14/25 08/15/25 11:59 11:59 11:59 11:59 Weight 72.7 kg - Lab Result Diagrams: 08/14/25 04:30 08/14/25 04:30 Lab Results-Last 24 Hrs: Lab Results-Last 24 Hours 08/14/25 08/14/25 08/14/25 Range/Units 04:30 04:30 04:30 WBC 13.6 H (4.23-9.07) x10^3/uL RBC 4.96 (4.63-6.08) x10^6/uL Hgb 15.3 (13.7-17.5) g/dL Hct 44.7 (40.1-51.0) % MCV 90.1 (79.0-92.2) fL MCH 30.8 (25.7-32.2) pg MCHC 34.2 (32.3-36.5) g/dL RDW 12.7 (11.6-14.4) % Plt Count 252 (163-337) x10^3/uL MPV 10.6 (9.4-12.4) fL Segmented Neutrophils 92 H (34.0-67.9) % Band Neutrophils 3 H (0.0-2.0) % Lymphocytes (Manual) 5 L (21.8-53.1) % Platelet Estimate NORMAL (NORMAL) RBC Morphology NORMAL Sodium 132 L (135-145) mmol/L Potassium 3.9 (3.5-5.1) mmol/L Chloride 100 (98-107) mmol/L Carbon Dioxide 21 L (22-30) mmol/L Anion Gap 14.8 (5-15) MEQ/L BUN 11 (9-20) mg/dL Creatinine 0.84 (0.66-1.25) mg/dL Estimated GFR 87.1 ML/MIN Glucose 226 H (74-106) mg/dL POC Glucometer (74 to 106) mg/dL Lactic Acid (0.4-2.0) Calcium 8.9 (8.4-10.2) mg/dL Total Bilirubin 1.50 H (0.2-1.3) mg/dL AST 35 (17-59) U/L ALT 25 (0-50) U/L Alkaline Phosphatase 110 (38-126) U/L Troponin I (0.000-0.033) ng/mL Serum Total Protein 8.1 (6.3-8.2) g/dL Albumin 4.3 (3.5-5.0) g/dL Urine Color (Yellow) Urine Appearance (Clear) Urine pH (4.6-8.0) Ur Specific [place] (1.005-1.030) Urine Protein (Negative) Urine Glucose (UA) (Negative) mg/dL Urine Ketones (Negative) Urine Blood (Negative) Urine Nitrite (Negative) Urine Bilirubin (Negative) Urine Urobilinogen (0.2) mg/dL Ur Leukocyte Esterase (Negative) U Hyaline Cast (Auto) (0-2) /LPF Urine Microscopic RBC (0-5) /HPF Urine Microscopic WBC (0-5) /HPF Ur Epithelial Cells (None Seen) /HPF Urine Bacteria (None Seen) /HPF Urine Culture Reflexed (NO) Influenza Type A Ag NEGATIVE (NEGATIVE) Influenza Type B Ag NEGATIVE (NEGATIVE) RSV (PCR) NEGATIVE (NEGATIVE) SARS-CoV-2 (PCR) NEGATIVE (NEGATIVE) 08/14/25 08/14/25 08/14/25 Range/Units 04:30 04:44 04:48 WBC (4.23-9.07) x10^3/uL RBC (4.63-6.08) x10^6/uL Hgb (13.7-17.5) g/dL Hct (40.1-51.0) % MCV (79.0-92.2) fL MCH (25.7-32.2) pg MCHC (32.3-36.5) g/dL RDW (11.6-14.4) % Plt Count (163-337) x10^3/uL MPV (9.4-12.4) fL Segmented Neutrophils (34.0-67.9) % Band Neutrophils (0.0-2.0) % Lymphocytes (Manual) (21.8-53.1) % Platelet Estimate (NORMAL) RBC Morphology Sodium (135-145) mmol/L Potassium (3.5-5.1) mmol/L Chloride (98-107) mmol/L Carbon Dioxide (22-30) mmol/L Anion Gap (5-15) MEQ/L BUN (9-20) mg/dL Creatinine (0.66-1.25) mg/dL Estimated GFR ML/MIN Glucose (74-106) mg/dL POC Glucometer (74 to 106) mg/dL Lactic Acid 3.0 H (0.4-2.0) Calcium (8.4-10.2) mg/dL Total Bilirubin (0.2-1.3) mg/dL AST (17-59) U/L ALT (0-50) U/L Alkaline Phosphatase (38-126) U/L Troponin I 0.033 (0.000-0.033) ng/mL Serum Total Protein (6.3-8.2) g/dL Albumin (3.5-5.0) g/dL Urine Color Yellow (Yellow) Urine Appearance Clear (Clear) Urine pH 5.5 (4.6-8.0) Ur Specific [place] 1.015 (1.005-1.030) Urine Protein 30 (Negative) Urine Glucose (UA) >=1000 A (Negative) mg/dL Urine Ketones Trace A (Negative) Urine Blood Negative (Negative) Urine Nitrite Negative (Negative) Urine Bilirubin Negative (Negative) Urine Urobilinogen 1.0 A (0.2) mg/dL Ur Leukocyte Esterase Moderate A (Negative) U Hyaline Cast (Auto) 6-10 A (0-2) /LPF Urine Microscopic RBC 0-2 (0-5) /HPF Urine Microscopic WBC 21-50 A (0-5) /HPF Ur Epithelial Cells Rare (None Seen) /HPF Urine Bacteria None Seen (None Seen) /HPF Urine Culture Reflexed YES (NO) Influenza Type A Ag (NEGATIVE) Influenza Type B Ag (NEGATIVE) RSV (PCR) (NEGATIVE) SARS-CoV-2 (PCR) (NEGATIVE) 08/14/25 08/14/25 08/14/25 Range/Units 06:54 10:06 10:25 WBC (4.23-9.07) x10^3/uL RBC (4.63-6.08) x10^6/uL Hgb (13.7-17.5) g/dL Hct (40.1-51.0) % MCV (79.0-92.2) fL MCH (25.7-32.2) pg MCHC (32.3-36.5) g/dL RDW (11.6-14.4) % Plt Count (163-337) x10^3/uL MPV (9.4-12.4) fL Segmented Neutrophils (34.0-67.9) % Band Neutrophils (0.0-2.0) % Lymphocytes (Manual) (21.8-53.1) % Platelet Estimate (NORMAL) RBC Morphology Sodium (135-145) mmol/L Potassium (3.5-5.1) mmol/L Chloride (98-107) mmol/L Carbon Dioxide (22-30) mmol/L Anion Gap (5-15) MEQ/L BUN (9-20) mg/dL Creatinine (0.66-1.25) mg/dL Estimated GFR ML/MIN Glucose (74-106) mg/dL POC Glucometer 180 H (74 to 106) mg/dL Lactic Acid 1.2 (0.4-2.0) Calcium (8.4-10.2) mg/dL Total Bilirubin (0.2-1.3) mg/dL AST (17-59) U/L ALT (0-50) U/L Alkaline Phosphatase (38-126) U/L Troponin I 0.093 H* (0.000-0.033) ng/mL Serum Total Protein (6.3-8.2) g/dL Albumin (3.5-5.0) g/dL Urine Color (Yellow) Urine Appearance (Clear) Urine pH (4.6-8.0) Ur Specific [place] (1.005-1.030) Urine Protein (Negative) Urine Glucose (UA) (Negative) mg/dL Urine Ketones (Negative) Urine Blood (Negative) Urine Nitrite (Negative) Urine Bilirubin (Negative) Urine Urobilinogen (0.2) mg/dL Ur Leukocyte Esterase (Negative) U Hyaline Cast (Auto) (0-2) /LPF Urine Microscopic RBC (0-5) /HPF Urine Microscopic WBC (0-5) /HPF Ur Epithelial Cells (None Seen) /HPF Urine Bacteria (None Seen) /HPF Urine Culture Reflexed (NO) Influenza Type A Ag (NEGATIVE) Influenza Type B Ag (NEGATIVE) RSV (PCR) (NEGATIVE) SARS-CoV-2 (PCR) (NEGATIVE) Micro Results-Entire Visit: Accuchecks Date 08/14/25 Time 10:07 - Radiology Exams Ordered Rad Exams-Entire Visit: Radiology Procedures Category Date Time Status ABDOMEN AND PELVIS W CONTRAST [CT] Stat Exams 08/14/25 04:14 Completed CHEST 1 VIEW (PORTABLE) Stat Exams 08/14/25 04:14 Completed HEAD WITHOUT CONTRAST [CT] Stat Exams 08/14/25 04:14 Completed - Procedures and Test Procedures and Tests throughout Hospitalization: Therapy Orders & Screens 08/14/25 11:58 EKG ONCE Comment: Diagnosis: Acute Cholecystitis, Pancreatic Lesion, SIRS Discharge Exam General Appearance: no apparent distress Neurologic Exam: alert, oriented x 3, cooperative Eye Exam: PERRL Ears, Nose, Throat Exam: normal ENT inspection Neck Exam: normal inspection Respiratory Exam: normal breath sounds, lungs clear Cardiovascular Exam: regular rate/rhythm, normal heart sounds Gastrointestinal/Abdomen Exam: soft, normal bowel sounds Male Genitalia Exam: deferred Rectal Exam: deferred Back Exam: normal inspection Extremity Exam: normal inspection Skin Exam: normal color Final Diagnosis/Problem List - Final Discharge Diagnosis/Problem (1) Sepsis Current Visit: Yes Status: Acute Assessment & Plan: Secondary to acute calculus cholecystitis and possible UTI. Meets criteria with fever, tachycardia, leukocytosis, and elevated lactate. Imaging: CT confirmed acute calculus cholecystitis. Labs: WBC 13, lactate 3.0 ? improved to 1.2, Tbili 1.50. Continue IV Zosyn until definitive source control. Transfer for higher-level surgical and ID management. Post-op monitoring for complications (bile leak, abscess). Maintain IV fluids; monitor hemodynamics. Blood/urine cultures pending. (2) UTI (urinary tract infection) Current Visit: Yes Status: Acute Assessment & Plan: UA positive for leukocyte esterase and WBCs. Covered with Zosyn pending culture results. Adjust per sensitivities. Monitor urine output and renal function. Code(s): N39.0 - URINARY TRACT INFECTION, SITE NOT SPECIFIED (3) Acute cholecystitis Current Visit: Yes Status: Acute Assessment & Plan: Confirmed on CT; symptomatic with fever, pain, and systemic signs. Surgery consulted, cholecystectomy planned; to be performed after transfer. Continue antibiotics, supportive care. Monitor LFTs and bilirubin. Code(s): K81.0 - ACUTE CHOLECYSTITIS (4) HTN (hypertension) Current Visit: Yes Status: Acute Assessment & Plan: Continue home antihypertensive regimen as tolerated post-op. Monitor BP closely perioperatively Code(s): I10 - ESSENTIAL (PRIMARY) HYPERTENSION (5) Borderline diabetes Current Visit: Yes Status: Acute Assessment & Plan: Hold metformin while NPO and during acute illness. Use SSI with q4h Accuchecks while inpatient. Order A1c for baseline. Code(s): R73.03 - PREDIABETES (6) History of urethral stricture Current Visit: Yes Status: Acute Assessment & Plan: Stable with no current obstruction. Monitor for urinary retention. Continue outpatient urology follow-up. Code(s): Z87.448 - PERSONAL HISTORY OF OTHER DISEASES OF URINARY SYSTEM (7) Pancreatic lesion Current Visit: Yes Status: Acute Assessment & Plan: Incidental on CT. MRCP scheduled for further characterization. Outpatient GI follow-up for surveillance if benign confirmed. Code(s): K86.9 - DISEASE OF PANCREAS, UNSPECIFIED (8) Hyperbilirubinemia Current Visit: Yes Status: Acute Assessment & Plan: Likely due to cholestasis from acute cholecystitis. Monitor LFTs and bilirubin post-op. GI evaluation if worsening after surgery. Code(s): E80.6 - OTHER DISORDERS OF BILIRUBIN METABOLISM (9) Hyponatremia Current Visit: Yes Status: Acute Assessment & Plan: Likely sepsis-related and dilutional. Monitor BMP daily. Correct underlying infection. No rapid correction required (asymptomatic, Na >130). Code(s): E87.1 - HYPO-OSMOLALITY AND HYPONATREMIA (10) Elevated troponin Current Visit: Yes Status: Acute Assessment & Plan: May reflect type II demand ischemia vs ACS. EKG normal sinus no ST elevation/deviation Transfer to higher-level facility for cardiology evaluation and monitoring. Serial troponins and EKGs. Optimize sepsis management and perfusion status. Code(s): R79.89 - OTHER SPECIFIED ABNORMAL FINDINGS OF BLOOD CHEMISTRY - Discharge Discharge Date: 08/14/25 Disposition: DC TO [facility] Condition: Fair Prescriptions: New Piperacillin/Tazobactam 3.375G [Piperacillin/Tazobactam] 3.375 gm IV Q6HT Acetaminophen 325 mg [Tylenol 325 mg] 650 mg PO Q4H PRN PRN tablet PRN Reason: Pain, Fever, Headache Ondansetron HCl 4 mg/2 ml [Zofran 4 MG/2 ML VIAL] 4 mg IV Q6H PRN PRN PRN Reason: Nausea/Vomiting Continue lisinopriL [Lisinopril] 40 mg PO DAILY Amlodipine Besylate [Norvasc] 2.5 mg PO DAILY Discontinued hydroCHLOROthiazide [Hydrochlorothiazide] 12.5 mg PO DAILY Metformin HCl 500 mg [Glucophage 500 MG] 500 mg PO DAILY Follow up with: JIMBO OHARA MD [Primary Care Provider, [facility]ILY [facility]] JAMARCUS CHÁVEZ [COURTESY STAFF, GENERAL SURGERY]
[2025-08-14 17:34] VITALS: BP 134/67; PULSE 100; RESP 17; TEMP 99.9
== END 2025-08-14 19:15 | disposition home or self-care (01) | DRG 872 ==
LOC: ED 03:51 → MED SURG 08:15
PROVIDERS: ADMIT Student in an Organized Health Care Education/Training Program; ATTEND Student in an Organized Health Care Education/Training Program
DX: A41.9 Sepsis, unspecified organism (principal); N39.0 Urinary tract infection, site not specified; K81.0 Acute cholecystitis; E87.1 Hypo-osmolality and hyponatremia; I10 Essential (primary) hypertension; R73.03 Prediabetes; Z87.448 Personal history of other diseases of urinary system; K86.9 Disease of pancreas, unspecified; E80.6 Other disorders of bilirubin metabolism; R79.89 Other specified abnormal findings of blood chemistry; R50.9 Fever, unspecified; Z79.899 Other long term (current) drug therapy